=== PATIENT | male | born 1985 | race Caucasian/White ===

== ENCOUNTER 2018-11-19 09:09 | Emergency (ER) | payer SELFPAY ==
[~2018-11-19] VITALS: Ht 182.9 cm; Wt 99.3 kg
[2018-11-19 09:46] VITALS: BP 146/92; Ht 182.9 cm; Wt 99.3 kg
== END 2018-11-19 11:10 | disposition left against medical advice (07) ==
LOC: ED 09:09
DX: Z53.21 Procedure and treatment not carried out due to patient leaving prior to being seen by health care provider (principal)